=== PATIENT | female | born 1970 | race African-American/Black ===

== ENCOUNTER 2016-12-31 23:08 | Emergency (ER) | payer BC ==
[~2016-12-31 23:08] MED LIST: AMOXICILLIN500 MG PO; ANUCORT-HC25 MG RE; CLINDAMYCIN EX; DEPO-MEDROL80 MG/ML IM; DOXYCYCL HYC100 MG PO; FLEXERIL OR; HYDROCHLOROT12.5 MG PO; HYDROXYZ HCL25 MG PO; KEFLEX500 MG PO; KETOROLAC60 MG/2 ML IJ; LISINOPRIL20 M1 PO; LOTENSIN HCT1 TA3 PO; NAPROSYN500 MG PO; NORVASC2.5 MG PO; ROCEPHIN 2 GM2 GM IM; SOLU-MEDROL125 MG IM
== END 2016-12-31 23:10 | disposition left against medical advice (07) | DRG 951 ==
LOC: ED 23:08 → LWOBS 23:10
DX: Z91.19 Patient's noncompliance with other medical treatment and regimen (principal)

== ENCOUNTER 2021-11-24 17:37 | Emergency (ER) | payer SELFPAY ==
[~2021-11-24] VITALS: Ht 155.4 cm; Wt 81.0 kg
[2021-11-24] MEDS ORDERED: EDARBYCLOR1 TA1 PO (19:08)
[2021-11-24 19:57] LABS: HEMATOCRIT 44.8 % (37.0-47.0); IMMATURE GRANULOCYTES 0.5 % (0.0-5.0); MEAN CELL VOLUME 90.7 fL CALC (80.0-100.0); MEAN CORPUSCULAR HGB 28.3 pG CALC (26.0-32.0); MEAN CORPUSCULAR HGB CONC 31.3 g/dL CAL (32.0-36.0); NEUT# 5.3 thou/uL (2.00-7.15); RED BLOOD COUNT 4.94 mill/uL (4.20-5.60); RED CELL DISTRI WIDTH 15.3 % (11.5-15.5)
[2021-11-24 20:12] LABS: URINE BILIRUBIN - DIPSTICK NEGATIVE (NEGATIVE); URINE BLOOD DIPSTICK NEGATIVE (NEGATIVE); URINE COLOR YELLOW; URINE GLUCOSE - DIPSTICK NEGATIVE (NEGATIVE); URINE KETONE NEGATIVE (NEGATIVE); URINE LEUK ESTERASE NEGATIVE (NEGATIVE); URINE PROTEIN - DIPSTICK NEGATIVE (NEG-TRACE); URINE SPECIFIC GRAVITY >=1.030; URINE UROBILINOGEN - DIPSTICK 0.2 E.U./dL (0.2)
[2021-11-24 20:15] LABS: URINE NITRITE - DIPSTICK NEGATIVE (Negative)
[2021-11-24 20:17] LABS: ALBUMIN 4.1 g/dL (3.2-5.0); ALKALINE PHOSPHATASE 70 u/l (38-126); ANION GAP 14 (6-22 (CALC)); BILIRUBIN, TOTAL 0.3 mg/dL (0.0-1.4); BUN 16 mg/dL (7-17); BUN/CREATININE RATIO 21 (12-20 (CALC)); CARBON DIOXIDE 25 mmol/l (22-30); CHLORIDE 105 mmol/l (95-108); CREATININE 0.8 mg/dL (0.5-1.0); GFR > 60 ML/MIN (>=60 (CALC)); GFR FOR AFR.AMER. > 60 ML/MIN (>=60 (CALC)); POTASSIUM 4.2 mmol/l (3.5-5.1); SGOT/AST 24 u/l (14-36); SODIUM 140 mmol/l (137-146); TOTAL PROTEIN 7.6 g/dL (6.3-8.2)
[2021-11-24] MEDS ORDERED: CLONIDINE0.1 MG PO (21:04)
[2021-11-24 21:20] VITALS: BP 126/90
== END 2021-11-24 21:23 | disposition home or self-care (01) | DRG 305 ==
LOC: ED 17:37
PROVIDERS: Family Medicine
DX: I10 Essential (primary) hypertension (principal); T46.5X6A Underdosing of other antihypertensive drugs, initial encounter; Z91.128 Patient's intentional underdosing of medication regimen for other reason

== ENCOUNTER 2022-06-25 11:10 | Emergency (ER) | payer SELFPAY ==
[~2022-06-25] VITALS: Ht 155.4 cm; Wt 77.0 kg
[2022-06-25] VITALS (10 sets, daily range): BP systolic 148–192; BP diastolic 80–112
[~2022-06-25 11:10] MED LIST changes: +CLONIDINE0.1 MG PO; +EDARBYCLOR1 TA1 PO
[2022-06-25 12:43] LABS: HEMATOCRIT 42.6 % (37.0-47.0); HEMOGLOBIN 13.7 g/dl (12.0-16.0); IMMATURE GRANULOCYTES 0.1 % (0.0-5.0); MEAN CELL VOLUME 89.5 fL CALC (80.0-100.0); MEAN CORPUSCULAR HGB 28.8 pG CALC (26.0-32.0); MEAN CORPUSCULAR HGB CONC 32.2 g/dL CAL (32.0-36.0); NEUT# 12.2 thou/uL (2.00-7.15); RED BLOOD COUNT 4.76 mill/uL (4.20-5.60); RED CELL DISTRI WIDTH 14.6 % (11.5-15.5)
[2022-06-25 12:58] LABS: ALBUMIN 4.4 g/dL (3.2-5.0); ALKALINE PHOSPHATASE 92 u/l (38-126); ANION GAP 13 (6-22 (CALC)); BUN 9 mg/dL (7-17); BUN/CREATININE RATIO 14 (12-20 (CALC)); CARBON DIOXIDE 30 mmol/l (22-30); CHLORIDE 104 mmol/l (95-108); CREATININE 0.7 mg/dL (0.5-1.0); GFR FOR AFR.AMER. > 60 ML/MIN (>=60 (CALC)); GFR OTHER RACES > 60 ML/MIN (>=60 (CALC)); POTASSIUM 4.4 mmol/l (3.5-5.1); SODIUM 142 mmol/l (137-146)
[2022-06-25 13:16] LABS: BILIRUBIN, TOTAL 0.5 mg/dL (0.0-1.4); SGOT/AST 68 u/l (14-36)
[2022-06-25 14:38] LABS: URINE BILIRUBIN - DIPSTICK NEGATIVE (NEGATIVE); URINE BLOOD DIPSTICK NEGATIVE (NEGATIVE); URINE COLOR YELLOW; URINE GLUCOSE - DIPSTICK NEGATIVE (NEGATIVE); URINE KETONE NEGATIVE (NEGATIVE); URINE LEUK ESTERASE TRACE (NEGATIVE); URINE NITRITE - DIPSTICK POSITIVE (Negative); URINE PH 6.5 (4.5-8.0); URINE PROTEIN - DIPSTICK NEGATIVE (NEG-TRACE)
[2022-06-25 14:39] LABS: URINE BACTERIA MODERATE hpf; URINE EPITHELIAL CELLS FEW EPI/hpf (0-FEW)
[2022-06-25] MEDS ORDERED: KEFLEX500 MG PO (15:22)
[2022-06-25] MEDS ORDERED: TORADOL PO (15:22)
[2022-06-25] MEDS ORDERED: VIBRAMYCIN100 M2 PO (15:22)
== END 2022-06-25 15:30 | disposition home or self-care (01) | DRG 194 ==
LOC: ED 11:10
PROVIDERS: Nurse Practitioner
DX: J18.9 Pneumonia, unspecified organism (principal); N39.0 Urinary tract infection, site not specified; I10 Essential (primary) hypertension; Z20.822 Contact with and (suspected) exposure to COVID-19